=== PATIENT | male | born 1985 | race Caucasian/White ===

== ENCOUNTER 2022-10-21 18:45 | Emergency (ER) | payer BC, MEDICAID ==
[2022-10-21] MEDS ORDERED: Amoxicillin/Clavulanate K 875-125 MG Tab PO ONE ×3 (18:46→19:05)
[2022-10-21] MEDS ORDERED: Bacitracin Oint 1 GM U/D Packet TOP ONE (19:04)
[2022-10-21 19:30] VITALS: PULSE 76
[2022-10-21 19:40] VITALS: BP 134/90
== END 2022-10-21 19:37 | disposition home or self-care (01) ==
LOC: FB.ED 18:45
DX: S61.051A Open bite of right thumb without damage to nail, initial encounter (principal); S81.031A Puncture wound without foreign body, right knee, initial encounter; I10 Essential (primary) hypertension; W54.0XXA Bitten by dog, initial encounter
CPT/HCPCS: 99283; A9270